=== PATIENT | male | born 1975 | race Caucasian/White ===

== ENCOUNTER → 2020-12-30 | Outpatient (CLI) | payer OTHER | LOC: SLEEP 12-28 10:39 | DX: J30.9 Allergic rhinitis, unspecified (principal); G30.9 Alzheimer's disease, unspecified; D64.9 Anemia, unspecified; F32.9 Major depressive disorder, single episode, unspecified; G47.33 Obstructive sleep apnea (adult) (pediatric) | CPT/HCPCS: 95810 ==